=== PATIENT | male | born 1950 | race Caucasian/White ===

== ENCOUNTER 2018-11-17 09:53 | Inpatient (IN) | payer MEDICARE | END 2018-12-01 14:03 | disposition home or self-care (01) | LOC: SUR 3N 11-21 19:05 → ER 09:53 → SUR 3N 11-27 20:00 → ED HOLD 20:13 → SUR 3N 22:50 | PROC: 0T5D8ZZ Destruction of Urethra, Via Natural or Artificial Opening Endoscopic (ICD-10-PCS; principal; 2018-11-23 17:08) | PROC: 0TB68ZX Excision of Right Ureter, Via Natural or Artificial Opening Endoscopic, Diagnostic (ICD-10-PCS; 2018-11-23 17:08) | PROC: BT141ZZ Fluoroscopy of Kidneys, Ureters and Bladder using Low Osmolar Contrast (ICD-10-PCS; 2018-11-23 17:08) | PROC: 0TJ98ZZ Inspection of Ureter, Via Natural or Artificial Opening Endoscopic (ICD-10-PCS; 2018-11-23 17:08) | DX: N40.1 Benign prostatic hyperplasia with lower urinary tract symptoms (principal); G92 Toxic encephalopathy; F10.230 Alcohol dependence with withdrawal, uncomplicated; N13.30 Unspecified hydronephrosis; E44.1 Mild protein-calorie malnutrition; E87.1 Hypo-osmolality and hyponatremia; E87.2 Acidosis; N12 Tubulo-interstitial nephritis, not specified as acute or chronic; E83.42 Hypomagnesemia; E87.6 Hypokalemia; S06.0X0A Concussion without loss of consciousness, initial encounter; R33.8 Other retention of urine; D53.9 Nutritional anemia, unspecified; N18.9 Chronic kidney disease, unspecified; I12.9 Hypertensive chronic kidney disease with stage 1 through stage 4 chronic kidney disease, or unspecified chronic kidney disease; R31.0 Gross hematuria; E83.39 Other disorders of phosphorus metabolism ==